=== PATIENT | male | born 1960 | race Caucasian/White ===

== ENCOUNTER 2021-08-31 08:22 | Emergency (ER) | payer BC, SELFPAY ==
[2021-08-31 08:23] VITALS: BP 172/95; PULSE 71; RESP 16; TEMP 36.8; O2SAT 98; BMI 26.5
--- NOTE | 2021-08-31 08:51 | CT_ITS ---
STUDY: CT ABDOMEN AND PELVIS WITHOUT CONTRAST REASON FOR EXAM: Male, 60 years old. Left flank pain RADIATION DOSAGE (If Supplied By Facility): CTDIvol = ( 7.37 ) mGy, DLP = ( 386.69 ) mGycm TECHNIQUE: Transaxial images were obtained from the dome of the diaphragm to the symphysis pubis without oral contrast, and without intravenous contrast. Sagittal and coronal images were reconstructed. Individualized dose optimization techniques were used for this CT. COMPARISON: None. FINDINGS: Minimal degree of bibasilar linear atelectasis. The visualized portions of the heart are within normal limits. Normal liver. Normal gallbladder and extrahepatic biliary system. Normal spleen. Normal pancreas. Normal bilateral adrenal glands. 3 mm nonobstructive calculus in the lower pole calyx of the right kidney. Left perinephric stranding. Engorgement of the left kidney. Mild degree of the left hydronephrosis and hydroureter due to a 3 mm calculus in the mid portion of the left ureter. Tiny nonobstructive calculus in the left kidney. There is a small hiatal hernia. Normal small intestine. There are multiple colonic diverticula consistent with diverticulosis. The appendix is visualized and appears normal. Normal abdominal aorta. Normal inferior vena cava. There is borderline retroperitoneal lymphadenopathy with enlarged nodes no greater than 10mm in the short axis diameter. Normal urinary bladder. Normal abdominal wall. There are diffuse degenerative changes of the visualized lumbar spine. Grade 1 anterolisthesis of L4 on L5 due to spondylolysis of the pars interarticularis of the L5 vertebrae. CT/Abdomen/Pelvis without Cont IMPRESSION: 3 mm calculus in the mid left ureter causing left hydronephrosis and hydroureter with left perinephric stranding. Tiny nonobstructive left intrarenal kyphosis. Electronically Signed: Beua Craven MD at 10:04 EDT ,
--- NOTE | 2021-08-31 08:52 | EDS_ITS ---
HPI History of Present Illness Chief Complaint: Flank Pain Informant: patient Onset/Context/Timing Onset: Yesterday Current Severity: Moderate Maximum Severity: Severe Narrative Narrative: Patient presents secondary left flank pain that started last evening. He has had nausea and vomiting associated with pain. He had slight urinary hesitancy this morning. No history of kidney stone. No history of diverticulitis. [facility] Medical History High cholesterol Home Medications hydrocodone-acetaminophen 5-325mg 5mg-325mg 1 tab PO Q6H PRN pain 3 days #10 tabs 08/31/21 [Rx Last Taken Unknown] ketorolac 10 mg tablet 10 mg PO Q6H PRN pain 3 days #10 tabs 08/31/21 [Rx Last Taken Unknown] ondansetron 4 mg disintegrating tablet 4 mg PO Q8H PRN nausea and vomiting #10 tabs 08/31/21 [Rx Last Taken Unknown] tamsulosin 0.4 mg capsule (Flomax) 0.4 mg PO DAILY #7 caps 08/31/21 [Rx Last Taken Unknown] Allergy/AdvReac Type Severity Reaction Status Date / Time No Known Allergies Allergy Verified 08/31/21 08:23 Social History Smoking Status: Never smoker ROS ROS ED Constitutional Constitutional ED: Denies chills or fever(s) Eyes Eyes: Denies change in vision or discharge from eye(s) ENT ENT ED: Denies discharge from eye(s), rhinorrhea or sore throat Cardiovascular Cardiovascular: Denies chest pain or palpitations Respiratory/Chest Respiratory/Chest: Denies cough or dyspnea Gastrointestinal Gastrointestinal: Reports abdominal pain, nausea and vomiting; Denies diarrhea Genitourinary Genitourinary ED: Denies difficulty urinating or dysuria Musculoskeletal Musculoskeletal: Reports back pain; Denies extremity pain Integumentary Denies Abrasions or rash Neurologic Neurologic: Denies headache(s) or weakness Allergic/Immunologic Allergic/Immunologic ED: Denies lip swelling or urticaria EXAM Physical Exam Const Vital Signs: 08/31/21 08:23 Temperature 98.3 F Temperature Source Temporal Pulse Rate 71 Respiratory Rate 16 Blood Pressure 172/95 H Blood Pressure Mean 120 Pulse Ox 98 Oxygen Delivery Method Room Air Positive well nourished and well developed General Appearance ED: well developed HEENT Reports normocephalic and head/scalp atraumatic Eyes PERRL and EOMs intact bilaterally Neck supple Chest Wall inspection of chest normal and palpation of chest normal Resp normal respiratory effort and clear to auscultation bilaterally Cardio regular rate and regular rhythm GI GI Narrative: Mild left lower quadrant tenderness palpation. No guarding or rebound. Hypoactive but present bowel sounds are noted. Palpation: soft Back/Spine no CVA tenderness Extremity normal to inspection Neuro oriented x3 and no sensory deficits noted Sensorium / Orientation: alert Motor Exam: strength 5/5 throughout Psych mental status grossly normal Skin no rashes or lesions noted MDM MDM MDM Narrative Medical decision making narrative: Patient was given morphine, Toradol, Zofran, IV fluids. Lab work obtained along with urinalysis and CT flank. Lab Data Attestation: I reviewed the patient's lab results. Labs: Laboratory Results - last 24 hr 08/31/21 08/31/21 08/31/21 09:05 09:05 09:40 WBC 11.5 H RBC 4.74 Hgb 14.6 Hct 43.0 MCV 90.7 MCH 30.8 MCHC 34.0 RDW Std Deviation 45.1 H RDW Coeff of Russ 13.3 Plt Count 255 MPV 10.0 Immature Gran % (Auto) 0.300 Neut % (Auto) 83.1 H Lymph % (Auto) 10.2 L [place] % (Auto) 6.1 Eos % (Auto) 0.1 Baso % (Auto) 0.2 Absolute Neuts (auto) 9.5 H Absolute Lymphs (auto) 1.17 Nucleated RBC % 0 Sodium 139 Potassium 3.8 Chloride 105 Carbon Dioxide 26.0 Anion Gap 8 BUN 15 Creatinine 1.00 Estim Creat Clear Calc 76.00 Est GFR (MDRD) Af Amer 98 Est GFR (MDRD) Non-Af 81 BUN/Creatinine Ratio 15.0 Glucose 111 H Calcium 8.9 Urine Color Yellow Urine Clarity Clear Urine pH 6.5 Ur Specific [place] 1.015 Urine Protein Negative Urine Glucose (UA) Normal Urine Ketones 5 H Urine Occult Blood 150 H Urine Nitrite Negative Urine Bilirubin Negative Urine Urobilinogen Normal Ur Leukocyte Esterase Negative Urine RBC 10-25 SEEN Urine WBC 0 SEEN Ur Squamous Epith Cells 0 SEEN Urine Bacteria 0 SEEN Urine Mucus 0 SEEN Radiography Diagnostic Testing: Clinical Impression(s) from Imaging Studies Abdomen/Pelvis CT 08/31/21 08:51 IMPRESSION: 3 mm calculus in the mid left ureter causing left hydronephrosis and hydroureter with left perinephric stranding. Tiny nonobstructive left intrarenal kyphosis. Electronically Signed: Beau Craven MD at 10:04 EDT , Treatment and Re-Evaluation Narrative: On repeat evaluation patient is improved. He states his pain is starting to increase again. He will be given another dose of morphine for pain control. Lab work reviewed with him and largely unremarkable. Renal function is normal. He does have blood noted in his urine but no sign of infection. CT scan reveals a 3 mm calculus in the left mid ureter. Patient will be given prescriptions for Toradol, [place]ed, Zofran, Flomax. He is encouraged to increase p.o. fluids. Return instructions are provided. He will be referred to Dr. Doherty for follow- up as needed. Discharge Plan Triage Chief Complaint: Flank Pain Other Complaint: Abd Pain ED Provider: Rakel Hudson Dx/Rx/DC Orders Clinical Impression: Ureterolithiasis Instructions: ED Kidney Stone w/ Colic Prescriptions: New ketorolac 10 mg tablet 10 mg PO Q6H PRN (Reason: pain) 3 Days Qty: 10 0RF hydrocodone-acetaminophen 5-325 mg tablet 1 tab PO Q6H PRN (Reason: pain) 3 Days Qty: 10 0RF ondansetron 4 mg tablet,disintegrating 4 mg PO Q8H PRN (Reason: nausea and vomiting) Qty: 10 0RF tamsulosin [Flomax] 0.4 mg capsule 0.4 mg PO DAILY Qty: 7 0RF Primary Care Provider: Matthew Dennison NP Referrals: Arpit Doherty MD [STAFF PHYSICIAN] - 1 Week if not improving [facility] Doctor,Out of [NON-STAFF] - Disposition Disposition: Home, Self Care
[2021-08-31] MEDS: Ondansetron 4 MG/2 ML Vial IV ×2 (09:05→11:02)
[2021-08-31] MEDS: Morphine 4 MG/ML Syringe IV ×2 (09:05→11:02)
[2021-08-31] MEDS: Ketorolac 30 MG/ML Syringe IV (09:05)
[2021-08-31] MEDS: 0.9% Normal Saline 1,000 ML 250 ML IV (09:05)
[2021-08-31 09:25] LABS: Absolute Lymphocyte Count 1.17 X10^3/uL (0.83-4.51); Absolute Neutrophil Count 9.5 X10^3/uL (2.0-7.7); Basophil# 0.02 X10^3/uL; Basophil% 0.2 % (0-1); Eosinophil# 0.01 X10^3/uL; Eosinophils% 0.1 % (0-5); Hemoglobin 14.6 g/dL (13.0-16.5); Lymphocyte # 1.17 X10^3/ul (0.83-4.51); Lymphocyte % 10.2 % (19-41); Mean Corpuscular Hgb 30.8 pg (27.0-32.0); Mean Corpuscular Volume 90.7 fL (80-94); Monocyte% 6.1 % (0-10); NRBC Flagged by Analyzer 0 % (0-5); Neutrophil # 9.53 X10^3/uL (2.7-7.7); Neutrophil % 83.1 % (47-70); Platelet Count 255 K/mm3 (150-450); RBC Distribution Width CV 13.3 % (11.6-14.6); RBC Distribution Width SD 45.1 fl (35.1-43.9); Red Blood Count 4.74 M/mm3 (4.6-6.2); White Blood Count 11.5 K/mm3 (4.4-11.0)
[2021-08-31 09:31] LABS: Anion Gap 8 (5-15); BUN 15 mg/dL (7-18); Calcium,Total 8.9 mg/dL (8.5-10.1); Chloride 105 mmol/L (98-107); EST Glomerular Filtration Rate 81 mL/min (>60); Est Glom Filt Rate - Afr Amer 98 mL/min (>60); Glucose 111 mg/dL (74-106); Potassium 3.8 mmol/L (3.5-5.1); Sodium Level 139 mmol/L (136-145)
[2021-08-31 09:48] LABS: Bacteria 0 SEEN /hpf (None Seen); Mucous, Urine 0 SEEN /hpf (<or=2+); Squamous Epithelial Cells - UA 0 SEEN /hpf (0-5); White Blood Cells 0 SEEN /hpf (0-5)
[2021-08-31 09:52] LABS: Color, Urine Yellow (Yellow); Glucose, Dipstick Normal (Normal); Ketone-Dipstick 5 mg/dl (Negative); Leukocyte Esterase-Dipstick Negative /ul (Negative); Nitrite-Dipstick Negative (Negative); Occult Blood-Urine 150 /ul (Negative); Protein-Dipstick Negative (Negative); Specific Gravity, Urine 1.015 (1.002-1.030); Urine Bilirubin Dipstick Negative (Negative); Urine Clarity Clear (Clear); Urine Urobilinogen Normal (Normal); Urine pH 6.5 (5.0 - 8.0)
[2021-08-31 09:58] LABS: Red Blood Cells-Urine 10-25 SEEN /hpf (0-5)
[2021-08-31 11:03] VITALS: BP 148/88; PULSE 62; RESP 95
== END 2021-08-31 11:30 | disposition home or self-care (01) ==
PROVIDERS: Emergency Provider Emergency Medicine; PCP Nurse Practitioner Primary Care; Visit Provider Emergency Medicine
DX: N13.2 Hydronephrosis with renal and ureteral calculous obstruction (principal); E78.00 Pure hypercholesterolemia, unspecified
CPT/HCPCS: 74176; 80048; 81001; 85025; 96361; 96374; 96375; 96376; 99284; J7030; A4216; J2405

== ENCOUNTER → 2024-02-11 | Outpatient (CLI) | payer BC, SELFPAY ==
--- NOTE | 2024-02-11 08:00 | MRI_ITS ---
STUDY: MRI LUMBAR SPINE WITHOUT CONTRAST REASON FOR EXAM: Male, 63 years old. Low back pain and right sided radiculopathy. TECHNIQUE: Standardized fat and water weighted pulse sequences were obtained in the sagittal and axial planes. COMPARISON: MRI lumbar spine without contrast 05/22/2016. FINDINGS: T11-T12: (Sagittal only). Normal endplates. Moderate disc space height narrowing. Minimal ventral extradural defect due to tiny posterior bulging annulus. Normal central canal and bilateral intervertebral neuroforamina. T12-L1: (Sagittal only). Normal endplates. Normal disc height, hydration and morphology. Normal central canal and bilateral intervertebral neural foramina. Normal lumbar lordosis. Prominent round benign focal fatty infiltration in the anterior L4 vertebral body. There is no substantial scoliosis. Normal conus medullaris that terminates at the mid L1 vertebral body level L1-2: Normal endplates. Mild disc space height narrowing. Minimal degenerative retrolisthesis of L1 on L2. No significant facet arthropathy. Normal central canal and bilateral lateral recesses. Normal bilateral intervertebral neuroforamina. L2-3: Normal endplates. Minimal disc space height narrowing. Minimal degenerative retrolisthesis of L2 on L3. No significant facet arthropathy. Normal central canal and bilateral lateral recesses. Normal bilateral intervertebral neuroforamina. L3-4: Normal endplates. Normal disc height. Minimal degenerative retrolisthesis of L3 on L4. No significant facet arthropathy. Normal central canal and bilateral lateral recesses. Normal bilateral intervertebral neuroforamina. L4-5: Moderate bands of Modic type I degenerative vertebral marrow edema underneath the vertebral endplates. Pronounced disc space height narrowing. Bilateral L4 pars defects with grade 1 anterolisthesis of L4 on L5. No significant facet arthropathy. Normal central canal and bilateral lateral recesses. Pronounced stenosis of right intervertebral neuroforamen with impingement of the right L4 nerve. Moderate stenosis of the left intervertebral neuroforamen without impingement of the left L4 nerve. L5-S1: Moderate bands of Modic type II degenerative fatty infiltration underneath the vertebral endplates. Pronounced disc space height narrowing. Bilateral L5 pars defects with less than grade 1 anterolisthesis of L5 on S1. No significant facet arthropathy. Normal central canal and bilateral lateral recesses. Pronounced stenosis of the bilateral intervertebral neuroforamina with impingement of both L5 nerves. Normal visualized sacral ala. Normal visualized paraspinous soft tissue structures. MRI/Spine Lumbar (Routine) IMPRESSION: 1. Moderate bands of L4-L5 intervertebral osteochondritis (Modic type I), pronounced disc space height narrowing, bilateral L4 pars defects with grade 1 anterolisthesis of L4 on L5, pronounced stenosis of the right intervertebral neuroforamen with impingement of the right L4 nerve and moderate stenosis of the left intervertebral neuroforamen without impingement of the left L4 nerve. There is progression and worsening since 05/22/2006. 2. Moderate bands of Modic type II changes of the vertebral marrow underneath the vertebral endplates, pronounced disc space height narrowing, bilateral L5 pars defects with less than grade 1 anterolisthesis of L5 on S1 and pronounced stenosis of the bilateral intervertebral neuroforamina without impingement of both L5 nerves. Except for the bilateral L5 pars defects, most of these are new findings since 05/22/2006. 3. Interval development of minimal disc space height narrowing and minimal degenerative retrolisthesis at L1-L2, L2-L3 and L3-L4 disc space levels when compared to 05/22/2006. 4. No MRI evidence of lumbar extruded disc fragment or lumbar disc protrusion. Electronically Signed: Rubén Brizuela MD at 12:03 [facility] ,
== END | disposition home or self-care (01) ==
LOC: MRI 07:33
PROVIDERS: PCP Nurse Practitioner Primary Care
DX: M43.16 Spondylolisthesis, lumbar region (principal); M21.371 Foot drop, right foot; M54.16 Radiculopathy, lumbar region; M47.816 Spondylosis without myelopathy or radiculopathy, lumbar region
CPT/HCPCS: 72148

== ENCOUNTER 2024-04-21 07:39 | Emergency (ER) | payer BC, SELFPAY ==
[2024-04-21 07:41] VITALS: BP 164/96; PULSE 69; RESP 16; TEMP 36.9; O2SAT 97; BMI 26.5
--- NOTE | 2024-04-21 07:52 | RAD_ITS ---
EXAM: XR Cervical Spine, 2 or 3 Views CLINICAL INDICATION: TECHNIQUE: Frontal and lateral views of the cervical spine. COMPARISON: No relevant prior studies available. FINDINGS: VERTEBRAE: Degenerative facet arthropathy throughout the cervical spine. Normal alignment. No acute fracture. DISC SPACES: Degenerative disc disease throughout the cervical spine. SOFT TISSUES: Unremarkable. RAD/Cerv Spine 2 or 3 Views IMPRESSION: 1. No acute fracture. 2. Degenerative changes of the cervical spine as described. Reading Location: [facility]
--- NOTE | 2024-04-21 07:53 | EX.ED.DYSGE1 ---
HPI History of Present Illness Chief Complaint: Other, Pain/Inj Narrative Narrative: Patient is a 63-year-old male past medical history hypercholesteremia who presents to the emergency department chief complaint of neck pain. Patient states that he has had neck pain going on for approximately 3 days now and noted that it is progressively gotten worse. Patient states that has been cutting firewood recently and does not know if he tweaked something when he is doing this. He states that his daughter has been trying e-stim and massage and is not helping his pain therefore he came here for the valuation management. Patient overall feels well outside of the pain and denies any recent sick contacts. Patient denies any trauma to his neck directly. [facility] Medical History High cholesterol Home Medications ?Medication ?Instructions ?Recorded ?Last Taken ?Type cyclobenzaprine 5 mg tablet 5 mg PO TID PRN muscle spasm #20 04/21/24 Unknown Rx tabs lidocaine 5 % topical patch 1 patch topical DAILY #15 ea 04/21/24 Unknown Rx ondansetron 4 mg disintegrating 4 mg PO Q6H PRN nausea and 04/21/24 Unknown Rx tablet vomiting #20 tabs oxycodone-acetaminophen 5 mg-325 1 tab PO Q6H PRN pain 2 days #8 04/21/24 Unknown Rx mg tablet (Endocet) tabs Allergy/AdvReac Type Severity Reaction Status Date / Time No Known Allergies Allergy Verified 04/21/24 07:40 Social History Smoking Status: Never smoker ROS ROS ED ROS Narrative Constitutional: Denies any fevers, chills, headaches, lightness, dizziness Eyes: Denies change in vision double vision blurry vision Neck: Complains of neck pain as noted above Cardiovascular: Denies chest pain or palpitations Respiratory: Denies coughing wheezing shortness of breath Abdomen: Denies abdominal pain nausea vomit diarrhea : Denies any urinary symptoms Neurological: Denies numbness, weakness, tingling Musculoskeletal: Complains of neck pain as noted above Skin: Denies rashes or lesions EXAM Physical Exam Narrative Exam Narrative: General: Patient lying in bed rest comfortably did not appear to be acute distress Head: Atraumatic, normocephalic Eyes: PERRL bilaterally, EOMI bilaterally, no conjunctival injection noted Neck: Soft, supple, trachea midline, no tenderness palpation midline of the cervical spine, patient has tenderness palpation over the trapezius region on the right side with reproducible pain, patient does have limited range of motion of his neck looking left right up and down secondary to pain. No concern for meningitis Cardiovascular: Regular rate and rhythm no murmurs gallops rubs noted Respiratory: Clear to auscultation bilaterally Musculoskeletal: No tenderness palpation in the midline of the thoracolumbar spine Extremities: Radial pulses +2/4 in the bilateral extremities, +5/5 strength noted in the bilateral upper and lower extremities, no pedal edema no exam Neurological: Patient following commands knew that he was at [facility] year is 2024 Skin: Warm, dry, intact no rashes or lesions noted Const Vital Signs: 04/21/24 07:41 04/21/24 07:48 Temperature 98.4 F Temperature Source Oral Pulse Rate 69 Respiratory Rate 16 Respiratory Effort Normal Respiratory Pattern Normal Blood Pressure 164/96 H Blood Pressure Mean 118 Pulse Ox 97 Oxygen Delivery Method Room Air MDM MDM MDM Narrative Medical decision making narrative: Patient is a 63-year-old male who presented to the emerged part with chief complaint of neck pain that is progressively worsened over the last 3 days. On the differential diagnose includes but not limited to musculoskeletal strain, compression fracture, degenerative disc disease, pinched nerve. Once workup is obtained reviewed he will be reevaluated. Patient be given Toradol and Norflex. On reevaluation patient is still having pain he was given [place] and Zofran. Patient's cervical spine x-ray reviewed by myself and by radiology showed no acute fracture degenerative changes of cervical spine noted. Patient's EKG reviewed by myself which showed sinus rhythm with a rate of 71 bpm. On reevaluation the patient he is feeling better he would like to go home at this point time. We will try a multimodal therapy for pain control at home. This will include prescriptions for Lidoderm patch, rotating Tylenol and ibuprofen [id number] when he does this he can take something every 3 hours. Prescription for Zofran and Percocet. He is advised not operate anything under the influence of these medications as well as a muscle relaxer cyclobenzaprine. He is advised to follow-up with his primary care physician and return with worsening symptoms or any concerns. He is agreeable this plan as well as his daughter at bedside all question concerns answered he was discharged home in stable condition. Radiography Diagnostic Testing: Clinical Impression(s) from Imaging Studies Cervical Spine X-Ray 04/21/24 07:52 IMPRESSION: 1. No acute fracture. 2. Degenerative changes of the cervical spine as described. Reading Location: [facility] Discharge Plan Triage Chief Complaint: Other, Pain/Inj ED Provider: Fortino Whittington Dx/Rx/DC Orders Clinical Impression: Musculoskeletal strain Prescriptions: New lidocaine 5 % adhesive patch,medicated 1 patch topical DAILY Qty: 15 0RF Rx Instructions: leave on most painful area for up to 12 hrs ondansetron 4 mg tablet,disintegrating 4 mg PO Q6H PRN (Reason: nausea and vomiting) Qty: 20 0RF oxycodone-acetaminophen [Endocet] 5-325 mg tablet 1 tab PO Q6H PRN (Reason: pain) 2 Days Qty: 8 0RF cyclobenzaprine 5 mg tablet 5 mg PO TID PRN (Reason: muscle spasm) Qty: 20 0RF Primary Care Provider: Matthew Dennison NP Referrals: Matthew Dennison TOLL TEST WORKER, TOLL TEST WORKER-C [Primary Care Provider] - Activity Restrictions/Additional Instructions: Rotate Tylenol and ibuprofen [id number] when you do this you can take something every 3 hours max dose of Tylenol is 4000 mg/day, max dose of ibuprofen is 3200 mg/day. Use the Percocet and Zofran for severe pain do not operate anything under the influence of the Percocet/Endocet or the muscle relaxer. Use the Lidoderm patches as prescribed as well. Follow-up with your primary care physician outpatient setting. Your x-ray of your neck did not show anything acute there were degenerative changes noted. Return with worsening symptoms or concerns. Print Language: Persian Disposition Disposition: Home, Self Care
[2024-04-21] MEDS: Ketorolac 30 MG/ML Syringe IM (08:01)
[2024-04-21] MEDS: Orphenadrine 60 MG/2 ML Ampul 30 MG IM (08:02)
[2024-04-21] MEDS: Ondansetron ODT 4 MG Tablet PO (08:24)
[2024-04-21] MEDS: HYDROcodone Bitartrate/Apap 5/325 Tablet PO (08:24)
[2024-04-21 09:14] VITALS: BP 139/87; PULSE 70; RESP 16; TEMP 35.9; O2SAT 95
== END 2024-04-21 09:16 | disposition home or self-care (01) ==
PROVIDERS: Emergency Provider Emergency Medicine; PCP Nurse Practitioner Primary Care; Visit Provider Emergency Medicine
DX: S16.1XXA Strain of muscle, fascia and tendon at neck level, initial encounter (principal); E78.00 Pure hypercholesterolemia, unspecified; X58.XXXA Exposure to other specified factors, initial encounter
CPT/HCPCS: 72040; 93005; 96372; 99284